=== PATIENT | female | born 1995 | race American Indian/Alaskan Native ===

== ENCOUNTER 2019-09-19 04:55 | Emergency (ER) | payer OTHER ==
[2019-09-19 05:19] VITALS: BP 121/76
[2019-09-19] MEDS ORDERED: ACETAMINOPHEN W/CODEINE 300-30 MG TAB PO ONE (05:42)
[2019-09-19] MEDS ORDERED: AMOXICILLIN/K CLAV 875/125MG TAB PO ONE (05:42)
[2019-09-19] MEDS ORDERED: oxyCODONE /ACETAMINOPHEN 5-325MG TAB PO ONE (05:45)
[2019-09-19] MEDS ORDERED: ONDANSETRON 4 MG ODT TAB PO ONE (05:45)
--- NOTE | 2019-09-19 05:47 | Emergency Department Report ---
ED General Adult HPI - General Chief complaint: Dental/Oral Stated complaint: TOOTH PAIN Source: patient Mode of arrival: Ambulatory Limitations: No Limitations - History of Present Illness Initial comments: Patient is a A0 24-year-old -English female was approximately 24 weeks gestation and who presented to the ED with acute onset persistent severe left maxillary premolar molar toothache with swollen gums for the last 24 hours. Patient states that she has been taking [id number] Tylenol with no relief since the onset of the symptoms. Patient denies dizziness, fever, chills, nausea, vomiting, sore throat, cough, abdominal pain, diarrhea, vaginal bleeding, syncope, dysuria, urinary frequency and urgency MD Complaint: dental pain; swollen gums -: Sudden, hour(s) (24) Location: mouth Radiation: non-radiation Severity scale (0 -10): 8 Quality: aching, sharp Consistency: constant Improves with: none Worsens with: none Associated Symptoms: denies other symptoms. denies: confusion, chest pain, cough, diaphoresis, fever/chills, headaches, loss of appetite, malaise, nausea/vomiting, rash, seizure, shortness of breath, syncope, weakness Treatments Prior to Arrival: none - Related Data Previous Rx's Medication Instructions Recorded Last Taken Type Acetaminophen [Tylenol] 1,000 mg PO Q6HR #30 tablet 09/19/19 Unknown Rx Amoxicillin/Potassium Clav 1 each PO Q12H #20 tablet 09/19/19 Unknown Rx [Augmentin 875-125 Tablet] ED Review of Systems ROS: Stated complaint: TOOTH PAIN Other details as noted in HPI Constitutional: denies: chills, fever Eyes: denies: eye pain, eye discharge, vision change ENT: dental pain (Left maxillary premolar molar toothache with swollen gums). denies: ear pain, throat pain Respiratory: denies: cough, shortness of breath, wheezing Cardiovascular: denies: chest pain, palpitations Endocrine: no symptoms reported Gastrointestinal: denies: abdominal pain, nausea, diarrhea Genitourinary: denies: urgency, dysuria, discharge Musculoskeletal: denies: back pain, joint swelling, arthralgia Skin: denies: rash, lesions Neurological: denies: headache, weakness, paresthesias Psychiatric: denies: anxiety, depression Hematological/Lymphatic: denies: easy bleeding, easy bruising ED Past Medical Hx - Past Medical History Previous Medical History?: No - Surgical History Past Surgical History?: No - Social History Smoking Status: Never Smoker Substance Use Type: None - Medications Home Medications: Home Medications Medication Instructions Recorded Confirmed Last Taken Type Acetaminophen [Tylenol] 1,000 mg PO Q6HR #30 tablet 09/19/19 Unknown Rx Amoxicillin/Potassium Clav 1 each PO Q12H #20 tablet 09/19/19 Unknown Rx [Augmentin 875-125 Tablet] ED Physical Exam - General Limitations: No Limitations General appearance: alert, in no apparent distress - Head Head exam: Present: atraumatic, normocephalic, normal inspection - Eye Eye exam: Present: normal appearance, PERRL, EOMI Pupils: Present: normal accommodation - ENT ENT exam: Present: mucous membranes moist, TM's normal bilaterally, normal external ear exam, other (Swollen and painful left maxillary gums; severely painful left maxillary premolar and molar teeth) - Neck Neck exam: Present: normal inspection, full ROM. Absent: tenderness, meningismus, lymphadenopathy - Respiratory Respiratory exam: Present: normal lung sounds bilaterally. Absent: respiratory distress, wheezes, rales, stridor, chest wall tenderness, accessory muscle use, prolonged expiratory - Cardiovascular Cardiovascular Exam: Present: regular rate, normal rhythm, normal heart sounds. Absent: systolic murmur, diastolic murmur, rubs, gallop - GI/Abdominal GI/Abdominal exam: Present: soft, normal bowel sounds. Absent: tenderness, guarding, hyperactive bowel sounds, hypoactive bowel sounds, organomegaly - Extremities Exam Extremities exam: Present: normal inspection, full ROM, normal capillary refill - Back Exam Back exam: Present: normal inspection, full ROM. Absent: tenderness, CVA tenderness (R), muscle spasm, paraspinal tenderness, vertebral tenderness - Neurological Exam Neurological exam: Present: alert, oriented X3, CN II-XII intact, normal gait, reflexes normal - Psychiatric Psychiatric exam: Present: normal affect, normal mood - Skin Skin exam: Present: warm, dry, intact, normal color. Absent: rash ED Course Vital Signs 09/19/19 05:18 Temperature 98.5 F Pulse Rate 86 Respiratory 20 Rate Blood Pressure 121/76 O2 Sat by Pulse 100 Oximetry ED Medical Decision Making - Medical Decision Making This is a A0 24-year-old female who is approximately 24 weeks gestation and who presented to the ED with acute onset persistent severe left maxillary premolar and molar toothaches with swollen gums and pain for the last 24 hours. In the ED, patient is alert and oriented x3 and is not in distress but appears to be in significant pain. Patient was treated for pain in the ED and also given initial oral antibiotics in the ED. Patient was advised to follow-up with her dentist in 7 to 10 days for reevaluation or return to the ED immediately if symptoms get worse. - Differential Diagnosis dental abscess; dental caries; Acute gingivitis Critical care attestation.: If time is entered above; I have spent that time in minutes in the direct care of this critically ill patient, excluding procedure time. ED Disposition Clinical Impression: Acute gingivitis, Dental abscess, Dental caries Disposition: TO HOME OR SELFCARE Is pt being admited?: No Does the pt Need Aspirin: No Condition: Stable Instructions: Dental Abscess (ED), Gingivitis (ED), Dental Caries (ED) Additional Instructions: Take medication with food, drink plenty of fluids and follow-up with your primary care physician or dentist in 7 to 10 days for reevaluation. Return to the ED immediately if symptoms get worse. Prescriptions: Acetaminophen [Tylenol] 1,000 mg PO Q6HR #30 tablet Amoxicillin/Potassium Clav [Augmentin 875-125 Tablet] 1 each PO Q12H #20 tablet Referrals: [facility] [Outside] - 7-10 days Time of Disposition: 05:48 Print Language: SAUDI ARABIAN
== END 2019-09-19 05:58 | disposition home or self-care (01) ==
LOC: ED 04:55
DX: O99.612 Diseases of the digestive system complicating pregnancy, second trimester (principal); K05.10 Chronic gingivitis, plaque induced; K04.7 Periapical abscess without sinus; K02.9 Dental caries, unspecified; Z3A.24 24 weeks gestation of pregnancy
CPT/HCPCS: 99282; Q0162

== ENCOUNTER 2022-01-26 01:12 | Emergency (ER) | payer OTHER ==
[2022-01-26 02:20] LABS: Basophils % (Auto) 0.6 % (0.0-1.8); Eosinophils # (Auto) 0.1 K/mm3 (0.0-0.4); Eosinophils % (Auto) 1.4 % (0.0-4.3); Hematocrit 35.8 % (30.3-42.9); Hemoglobin 11.7 gm/dl (10.1-14.3); Lymphocytes # (Auto) 3.1 K/mm3 (1.2-5.4); Lymphocytes % (Auto) 39.5 % (13.4-35.0); Mean Corpuscular HGB Conc 33 % (30-34); Mean Corpuscular Volume 92 fl (79-97); Monocytes # (Auto) 0.5 K/mm3 (0.0-0.8); Monocytes % (Auto) 6.3 % (0.0-7.3); Platelet Count 237 K/mm3 (140-440); Red Blood Count 3.89 M/mm3 (3.65-5.03); Red Cell Distribution Width 13.7 % (13.2-15.2)
[2022-01-26 02:39] LABS: Bilirubin,Urine Negative (Negative); Blood,Urine Large (Negative); Color,Urine Yellow (Yellow); Urobilinogen,Urine 0.2 mg/dL (<2.0)
[2022-01-26 02:50] LABS: Bacteria,Urine 4+ /HPF (Negative); Mucus,Urine 3+ /HPF
--- NOTE | 2022-01-26 06:37 | Ultrasound Report ---
ULTRASOUND OBSTETRIC REASON FOR EXAM: pos preg vag bleeding TECHNIQUE: Transabdominal ultrasound was performed to evaluate a first trimester . Patient r efused transvaginal imaging. COMPARISON: None available. FINDINGS: FINDINGS: No intrauterine is visualized. No suspicious adnexal mass is visualized. MATERNAL FINDINGS: Uterus: The uterus demonstrates a normal sonographic appearance. The endometrial stripe measures 0.6 cm. Right ovary: The right ovary measures 2.9 cm. The right ovary demonstrates a normal sonographic appea kathleen and normal doppler flow. Left ovary: The left ovary measures 2.5 cm. The left ovary demonstrates a normal sonographic appearan ce and normal doppler flow. Cul-de-sac: Small volume free fluid in the cul-de-sac. IMPRESSION: Limited examination as patient refused transvaginal imaging. No IUP identified; of unknown location. Findings could reflect an early intrauterine pregna ncy, occult ectopic , or recent spontaneous . In a hemodynamically stable patient, r ecommend follow-up with pelvic ultrasound in 7-10 days. Signer Name: Jonny Serrano MD Signed: 01/26/2022 6:33 AM Workstation Name: [id number]
--- NOTE | 2022-01-26 08:29 | Emergency Department Report ---
ED Female HPI - General Chief complaint: Vaginal Bleeding Stated complaint: POSSIBLE MISCARRIAGE, ?ABLE 6 WEEKS Source: patient Mode of arrival: Ambulatory Limitations: No Limitations - History of Present Illness Initial comments: 26-year-old female presents to the ED complaining of vaginal bleeding. Patient states that she is currently 6 weeks s. Patient states that she was currently followed by [facility] Patient is 3 para 2 A1. Patient denies any abdominal pain at present time.Patient is oriented x 3 .No acute distress noted at present. Abnormal Lab Results 01/26/22 01/26/22 01/26/22 01:56 01:56 01:56 WBC 7.8 RBC 3.89 Hgb 11.7 Hct 35.8 MCV 92 MCH 30 MCHC 33 RDW 13.7 Plt Count 237 Lymph % (Auto) 39.5 H [place] % (Auto) 6.3 Eos % (Auto) 1.4 Baso % (Auto) 0.6 Lymph # (Auto) 3.1 [place] # (Auto) 0.5 Eos # (Auto) 0.1 Baso # (Auto) 0.0 Seg Neutrophils % 52.2 Seg Neutrophils # 4.1 HCG, Qual Positive HCG, Quant 19.82 H Urine Color Urine Turbidity Urine pH Ur Specific [place] Urine Protein Urine Glucose (UA) Urine Ketones Urine Blood Urine Nitrite Urine Bilirubin Urine Urobilinogen Ur Leukocyte Esterase Urine WBC (Auto) Urine RBC (Auto) U Epithel Cells (Auto) Urine Bacteria (Auto) Urine Mucus Blood Type 01/26/22 01/26/22 01:56 Unknown WBC RBC Hgb Hct MCV MCH MCHC RDW Plt Count Lymph % (Auto) [place] % (Auto) Eos % (Auto) Baso % (Auto) Lymph # (Auto) [place] # (Auto) Eos # (Auto) Baso # (Auto) Seg Neutrophils % Seg Neutrophils # HCG, Qual HCG, Quant Urine Color Yellow Urine Turbidity Clear Urine pH 5.0 Ur Specific [place] 1.030 Urine Protein 30 mg/dl Urine Glucose (UA) Negative Urine Ketones 15 Urine Blood Large A Urine Nitrite Negative Urine Bilirubin Negative Urine Urobilinogen 0.2 Ur Leukocyte Esterase Negative Urine WBC (Auto) 1.0 Urine RBC (Auto) 8.0 U Epithel Cells (Auto) 3.0 Urine Bacteria (Auto) 4+ Urine Mucus 3+ Blood Type A POSITIVE MD Complaint: vaginal bleeding, dysuria Onset/Timin Radiation: non-radiating Severity scale (0 -10): 0 Improves with: urination Worsens with: none Associated Symptoms: denies other symptoms - Related Data Sexually active: Yes Previous Rx's Medication Instructions Recorded Last Taken Type Acetaminophen [Tylenol] 1,000 mg PO Q6HR #30 tablet 09/19/19 Unknown Rx Amoxicillin/Potassium Clav 1 each PO Q12H #20 tablet 09/19/19 Unknown Rx [Augmentin 875-125 Tablet] Allergies Allergy/AdvReac Type Severity Reaction Status Date / Time No Known Allergies Allergy Unverified 09/19/19 05:49 ED Review of Systems ROS: Stated complaint: POSSIBLE MISCARRIAGE, ?ABLE 6 WEEKS Other details as noted in HPI Constitutional: denies: chills, fever Eyes: denies: eye pain, eye discharge, vision change ENT: denies: ear pain, throat pain Respiratory: denies: cough, shortness of breath, wheezing Cardiovascular: denies: chest pain, palpitations Endocrine: no symptoms reported Gastrointestinal: denies: abdominal pain, nausea, diarrhea Genitourinary: denies: urgency, dysuria, discharge Musculoskeletal: denies: back pain, joint swelling, arthralgia Skin: denies: rash, lesions Neurological: denies: headache, weakness, paresthesias Psychiatric: denies: anxiety, depression Hematological/Lymphatic: denies: easy bleeding, easy bruising ED Past Medical Hx - Social History Smoking Status: Never Smoker Substance Use Type: None - Medications Home Medications: Home Medications Medication Instructions Recorded Confirmed Last Taken Type Acetaminophen [Tylenol] 1,000 mg PO Q6HR #30 tablet 09/19/19 Unknown Rx Amoxicillin/Potassium Clav 1 each PO Q12H #20 tablet 09/19/19 Unknown Rx [Augmentin 875-125 Tablet] ED Physical Exam - General Limitations: No Limitations General appearance: alert, in no apparent distress - Head Head exam: Present: atraumatic, normocephalic - Eye Eye exam: Present: normal appearance - ENT ENT exam: Present: mucous membranes moist - Neck Neck exam: Present: normal inspection - Respiratory Respiratory exam: Present: normal lung sounds bilaterally. Absent: respiratory distress - Cardiovascular Cardiovascular Exam: Present: regular rate, normal rhythm. Absent: systolic murmur, diastolic murmur, rubs, gallop - GI/Abdominal GI/Abdominal exam: Present: soft, normal bowel sounds - Extremities Exam Extremities exam: Present: normal inspection - Back Exam Back exam: Present: normal inspection - Neurological Exam Neurological exam: Present: alert, oriented X3 - Psychiatric Psychiatric exam: Present: normal affect, normal mood - Skin Skin exam: Present: warm, dry, intact, normal color. Absent: rash ED Course Vital Signs 01/26/22 01/26/22 01:16 08:39 Temperature 98.5 F 98.1 F Pulse Rate 73 78 Respiratory 18 16 Rate Blood Pressure 123/79 Blood Pressure 114/68 [Left] O2 Sat by Pulse 100 98 Oximetry ED Medical Decision Making - Lab Data Result diagrams: 01/26/22 01:56 - Radiology Data [facility] [address] [place] [address] Ultrasound Report Signed Patient: GLORIA ARANDA MR# : [id number] : 1995 Acct:[id number] Age/Sex: 26 / F ADM Date: 01/26/22 Loc: ED Attending Dr: Ordering Physician: ELVIRA HANSON NP Date of Service: 01/26/22 Procedure(s): US OB <= 14 weeks fetus Accession Number(s): [id number] cc: ELVIRA HANSON NP ULTRASOUND OBSTETRIC REASON FOR EXAM: pos preg vag bleeding TECHNIQUE: Transabdominal ultrasound was performed to evaluate a first trimester . Patient refused transvaginal imaging. COMPARISON: None available. FINDINGS: FINDINGS: No intrauterine is visualized. No suspicious adnexal mass is visualized. MATERNAL FINDINGS: Uterus: The uterus demonstrates a normal sonographic appearance. The endometrial stripe measures 0.6 cm. Right ovary: The right ovary measures 2.9 cm. The right ovary demonstrates a normal sonographic appearance and normal doppler flow. Left ovary: The left ovary measures 2.5 cm. The left ovary demonstrates a normal sonographic appearance and normal doppler flow. Cul-de-sac: Small volume free fluid in the cul-de-sac. IMPRESSION: Limited examination as patient refused transvaginal imaging. No IUP identified; of unknown location. Findings could reflect an early intrauterine , occult ectopic , or recent spontaneous . In a hemodynamically stable patient, recommend follow-up with pelvic ultrasound in 7-10 days. Signer Name: Kali Sauceda MD Signed: 01/26/2022 6:33 AM Workstation Name: [id number] Transcribed By: SAILAJA Dictated By: KALI SAUCEDA MD Electronically Authenticated By: KALI SAUCEDA MD Signed Date/Time: 01/26/22632 DD/ 9 TD/TT: Critical care attestation.: If time is entered above; I have spent that time in minutes in the direct care of this critically ill patient, excluding procedure time. ED Disposition Clinical Impression: Threatened miscarriage in early Disposition: 01 HOME / SELF CARE / HOMELESS Is pt being admited?: No Does the pt Need Aspirin: No Condition: Stable Instructions: Threatened Miscarriage Additional Instructions: Follow-up with [facility] in 48 hours hCG quant is 19.28 Follow-up with your [facility] at [facility] Referrals: [facility] [Primary Care Provider] - 3-5 Days [facility] [Provider Group] - 3-5 Days Time of Disposition: 08:31
[2022-01-26 08:40] VITALS: BP 114/68
== END 2022-01-26 08:40 | disposition home or self-care (01) ==
LOC: ED 01:12
DX: O20.0 Threatened abortion (principal); Z3A.01 Less than 8 weeks gestation of pregnancy
CPT/HCPCS: 36415; 76801; 81001; 84702; 84703; 85025; 86900; 86901; 99284

== ENCOUNTER 2022-02-08 08:12 | Emergency (ER) | payer OTHER ==
[2022-02-08 08:29] VITALS: BP 120/70
== END 2022-02-08 10:20 | disposition left against medical advice (07) ==
LOC: ED 08:12
DX: R10.9 Unspecified abdominal pain (principal); Z53.21 Procedure and treatment not carried out due to patient leaving prior to being seen by health care provider